=== PATIENT | female | born 1960 | race Caucasian/White ===

== ENCOUNTER 2025-01-02 10:22 | Emergency (ER) | payer OTHER, SELFPAY ==
--- NOTE | 2025-01-02 10:28 | XR_ITS ---
WS: [id number] XR hand LT min 3V* [id number] REASON FOR EXAM: injury FINDINGS: Soft tissue injury and swelling in the tip of the fourth finger. No underlying bone or joint abnormality. The remainder of the bone and joint structure of the left hand is intact and without significant abnormality. XR/XR hand LT min 3V* [id number] IMPRESSION: Soft tissue abnormality without without associated bone or joint abnormality.
[2025-01-02 10:34] VITALS: BP 142/90; PULSE 61; RESP 14; TEMP 36.8; O2SAT 95; BMI 34.8
--- NOTE | 2025-01-02 11:16 | ED_ITS ---
HPI - Extremity Problem General: Chief complaint: Extremity Injury, Upper Stated complaint: left hand ring finger injury Time Seen by Provider: 01/02/25 10:54 Source: patient Mode of arrival: ambulatory Limitations: no limitations History of Present Illness: 64-year-old female states she was slicin g cucumbers at work today and lacerated her left ring finger she does have a laceration of the tip of the left ring finger she is up-to-date on her tetanus denies any other injuries bleeding is controlled this time. She states her pain is currently 2 out of 10. Associated symptoms: Deny chest pain, fever(s) or rash Review of Systems Const: Denies: fever(s), chills, body aches or change in appetite ENMT: Denies: dental pain Card: Denies: chest pain GI: Denies: abdominal pain, nausea, vomiting or diarrhea Musc: Reports: extremity pain; Denies: neck pain or back pain Skin/Breast: Denies: rash Physical Exam Const: COMMON NORMALS: no acute distress, patient oriented x3 and healthy appearing HENMT: COMMON NORMALS: normocephalic and atraumatic HEAD & SCALP: normocephalic and atraumatic Eye: COMMON NORMALS: conjunctivae normal CONJUNCTIVA: Yes conjunctivae normal Neck/C-Spine: COMMON NORMALS: full ROM and supple Chest: COMMONS NORMALS: normal inspection of the chest Resp: COMMON NORMALS: normal respiratory effort Cardio: COMMON NORMALS: regular rate RATE: regular rate Extremity: COMMON NORMALS: full ROM Neuro: COMMON NORMALS: patient oriented x3, moves all extremities and no focal motor deficits Psych: COMMON NORMALS: mental status grossly normal, Normal thought process present and cooperative THOUGHT PROCESS: Normal thought process present Skin: NARRATIVE SKIN EXAM: 1 cm laceration distal tip of left ring finger Procedures Laceration Laceration 1: Site: hand Side (If applicable): left Size (cm): 1 Description: irregular Depth: simple, single layer Local Anesthetic: lidocaine 1% Amount of anesthesia used (mL): 5 Pre-repair: wound explored, irrigated extensively and deep structures intact Skin layer closed with: nylon Size (cm): 5-0 Number of sutures: 4 Technique: simple, interrupted Course Vital Signs: Vital signs: Vital Signs Temperature 98.3 F 01/02/25 10:34 Pulse Rate 61 01/02/25 10:34 Respiratory Rate 14 02/14/25 10:34 Blood Pressure 142/90 01/02/25 10:34 Pulse Oximetry 95 01/02/25 10:34 Oxygen Delivery Me thod Room Air 01/02/25 10:34 MDM - Extremity (Nontraumatic) Medical Decision Making Patient presents here with laceration to her left ring finger did repair the laceration deep structures intact she is to have sutures removed in 7 days she is up-to-date on her tetanus return if worsening she understands agrees to plan Medical Records I reviewed the patient's medical records. Lab Data Radiology Impressions Hand X-Ray 01/02/25 10:28 IMPRESSION: Soft tissue abnormality without without associated bone or joint abnormality. All radiology interpretation(s) finalized by discharge Discharge Plan Discharge Patient Disposition: Home Clinical Impression: Laceration Condition: Stable Discharge Orders: Discharge ED (Routine); Ordered 01/02/25 Ordered By: Stacy Dyer Discharge Diet: Advance as tolerated Discharge Activity: Resume usual activity Patient Instructions: Care For Your Stitches (ED), Laceration (ED) Activity Restrictions/Additional Instructions: suture removal in 7 days Print Language: Singaporean Coding Level of Care Code ED Marine Service Operator for Makayla Snider
== END 2025-01-02 11:35 | disposition home or self-care (01) ==
PROVIDERS: Emergency Provider Emergency Medicine
DX: S61.215A Laceration without foreign body of left ring finger without damage to nail, initial encounter (principal); W26.0XXA Contact with knife, initial encounter
CPT/HCPCS: 12001; 73130; 99283

== ENCOUNTER 2025-01-05 13:56 | Outpatient (CLI) | payer OTHER, SELFPAY ==
--- NOTE | 2025-01-05 | MM_ITS ---
WS: [id number] BILATERAL 3D TOMOSYNTHESIS DIGITAL SCREENING MAMMOGRAPHY WITH CAD CLINICAL INFORMATION: ANNUAL SCREENING HISTORY: Screening mammogram. No current complaints. COMPARISON: None. TECHNIQUE: Bilateral CC and MLO views. FINDINGS: Scattered fibroglandular densities bilaterally. No suspicious focal mass, asymmetry, calcifications, or architectural distortion. No evidence of malignancy. Biopsy clip LEFT breast. MM/MM scr BI tomosynthesis [id number] IMPRESSION: DENSITY: There are scattered areas of fibroglandular density. BI-RADS: 2 - Benign. FOLLOW UP: 1 Year Follow-up Recommend return to annual screening mammography.
== END 2025-01-05 13:57 | disposition home or self-care (01) ==
PROVIDERS: Visit Provider Nurse Practitioner Family
DX: Z12.31 Encounter for screening mammogram for malignant neoplasm of breast (principal); R92.323 Mammographic fibroglandular density, bilateral breasts
CPT/HCPCS: 77063; 77067

== ENCOUNTER 2025-01-10 09:34 | Emergency (ER) | payer OTHER, SELFPAY ==
[2025-01-10 09:35] VITALS: BP 121/81; PULSE 89; RESP 16; TEMP 36.7; O2SAT 95; BMI 32.6
--- NOTE | 2025-01-10 09:56 | W.ED.EXTPRO ---
HPI - Extremity Problem General: Chief complaint: Extremity Injury, Upper Stated complaint: pain in left ring finger Time Seen by Provider: 01/10/25 09:45 History of Present Illness: 64-year-old woman who cut the tip of her finger several days ago. She had stitches. She did this at work. This is her left fourth digit. The stitches came out and she has had increased redness and warmth of the distal finger. No drainage. No signs of abscess. Does have some increased redness. Difficult to say if this is secondary to healing or if she has some new infection. Wound does appear to be healing well secondarily. No fevers. Neurovascularly intact. Related Data Previous Rx's ?Medication ?Instructions ?Recorded sulfamethoxazole 800 2 tab PO BID 7 days #28 tabs 01/10/25 mg-trimethoprim 160 mg tablet (Bactrim DS) Allergies Allergy/AdvReac Type Severity Reaction Status Date / Time No Known Allergies Allergy Verified 01/10/25 09:40 Review of Systems Narrative: Constitutional symptoms: Negative except as documented in HPI. Skin symptoms: Negative except as documented in HPI. Eye symptoms: Negative except as documented in HPI. ENMT symptoms: Negative except as documented in HPI. Respiratory symptoms: Negative except as documented in HPI. Cardiovascular symptoms: Negative except as documented in HPI. Gastrointestinal symptoms: Negative except as documented in HPI. Genitourinary symptoms: Negative except as documented in HPI. Musculoskeletal symptoms: Negative except as documented in HPI. Neurologic symptoms: Negative except as documented in HPI. Psychiatric symptoms: Negative except as documented in HPI. Endocrine symptoms: Negative except as documented in HPI. Physical Exam Narrative: EXAM NARRATIVE: General: Alert, no acute distress. Skin: warm and dry Head: Normocephalic Neck: Trachea midline Eye: Extraocular movements are intact. Ears, nose, mouth and throat: Oral mucosa moist Respiratory: Respirations are non-labored Musculoskeletal: Normal ROM. some increased redness. Difficult to say if this is secondary to healing or if she has some new infection. Wound does appear to be healing well secondarily. No fevers. Neurovascularly intact. Neurological: Alert and oriented, No focal neurological deficit observed. Psychiatric: Cooperative, appropriate mood & affect. Course Vital Signs: Vital signs: Vital Signs Temperature 98.0 F 01/10/25 09:35 Pulse Rate 89 01/10/25 09:35 Respiratory Rate 16 01/10/25 09:35 Blood Pressure 121/81 01/10/25 09:35 Pulse Oximetry 95 01/10/25 09:35 Oxygen Delivery Me thod Room Air 01/10/25 09:35 MDM - Extremity (Nontraumatic) Medical Decision Making Assessment and plan: Wound dehiscence Cellulitis ? Home on Bactrim. - Discharged home - Discussed plan with patient. Answered any questions. - Evaluation and treatment of this problem were appropriate in the emergency setting. No radiology studies performed this visit Discharge Plan Discharge Patient Disposition: Home Clinical Impression: Cellulitis, Wound dehiscence Condition: Stable Prescriptions: New sulfamethoxazole-trimethoprim [Bactrim DS] 800-160 mg tablet 2 tab PO BID 7 Days Qty: 28 0RF Discharge Orders: Discharge ED (Routine); Ordered 01/10/25 Ordered By: Rafia Gallagher Discharge Diet: Usual diet Discharge Activity: Increase activity as tolerated Patient Instructions: Cellulitis (ED), Wound Dehiscence (ED), Opioid Safety, Pain Management Activity Restrictions/Additional Instructions: Thank you for choosing [facility] [place] for your healthcare needs today. Please realize this is an emergency room and that we are providing you with a medical screening exam and this may not be complete and all inclusive of all the testing and or work up that you may need to determine your ailment or severity of your illness. You have been screened and evaluated and felt safe for discharge. Health conditions do change or evolve sometimes and as such it is important that you follow up with your Primary Doctor to be re checked, 3-5 days is a general good time frame for follow up. You are always welcome to return to the ED for re assessment if your symptoms are worsening or you have new concerns Print Language: Syriac Coding Level of Care Code ED Cable Lacer for Makayla Snider
[2025-01-10 10:10] VITALS: BP 121/81; PULSE 89; O2SAT 95
== END 2025-01-10 10:11 | disposition home or self-care (01) ==
PROVIDERS: Emergency Provider Emergency Medicine
DX: L03.012 Cellulitis of left finger (principal); T81.30XA Disruption of wound, unspecified, initial encounter; X58.XXXA Exposure to other specified factors, initial encounter
CPT/HCPCS: 99283

== ENCOUNTER → 2025-07-16 10:50 | Outpatient (BNVA) | payer MEDICARE, SELFPAY | PROVIDERS: PCP Family Medicine; Visit Provider Student in an Organized Health Care Education/Training Program | DX: D17.22 Benign lipomatous neoplasm of skin and subcutaneous tissue of left arm (principal) | CPT/HCPCS: 99203 ==